=== PATIENT | male | born 1975 | race Caucasian/White ===

== ENCOUNTER 2021-02-02 14:18 | Emergency (ER) | payer OTHER, SELFPAY ==
--- NOTE | 2021-02-02 14:28 | ED.WOUNDLAC ---
HPI - Wound/Laceration General Chief Complaint: Wound/Laceration Stated Complaint: Wound on Left Arm History of Present Illness HPI narrative: This is a 45-year-old male that was at work and scraped with the rebar on his left forearm. This incident happened approximately few hours ago. Patient is not sure when his last tetanus shot was denies any severe pain slight erythema minimal swelling able to use all extremities Related Data Allergies Allergy/AdvReac Type Severity Reaction Status Date / Time No Known Allergies Allergy Unverified 01/27/21 10:03 Review of Systems Review of Systems: Narrative: CONSTITUTIONAL: Denies fever, chills, or sweats. EYES: Denies visual changes, redness, or discharge. ENT: Denies rhinorrhea, congestion, sore throat, or otalgia. CARDIOVASCULAR:Denies chest pain, palpitations, or edema. RESPIRATORY: Denies cough or dyspnea. GASTROINTESTINAL: Denies abdominal pain, nausea, vomiting, or diarrhea. GENITOURINARY: Denies dysuria or hematuria. SKIN:[Denies rash or itching. left forearm abrasion MUSCULOSKELETAL:Denies back pain, joint pain, or myalgia. NEUROLOGIC: Denies headache, numbness, or weakness. PSYCHIATRIC:Denies anxiety or depression PMFSH Past Medical History Medical History Hypertension Obesity (BMI 30-39.9) Family History Family History Father Diabetes mellitus Mother Hypertension Social History Social History Smoking status: Former smoker Alcohol intake: never Comments At time as signature, I have reviewed and agree with nursing past medical, social, surgical and family history. Please see nursing chart for further information. There is no relevant family history pertinent to the presenting complaint. Exam Narrative: Exam Narrative: GENERAL:Well-appearing, well-nourished, and in no acute distress. HEAD:Normocephalic, atraumatic. EYES: PERRLA and EOMI. ENT: Nares clear, no rhinorrhea or epistaxis. Mucous membranes moist. NECK: Supple. CHEST: Clear to auscultation. No respiratory distress. HEART: Regular rate and rhythm. No murmur heard. Normal peripheral pulses. ABDOMEN: Soft, nontender, nondistended, normal active bowel sounds. EXTREMITIES: Normal range of motion. No edema. Left forearm abrasion superficial scraping SKIN: Warm, dry, no rash. NEURO: No focal deficits. Alert and oriented x3. Discharge Plan Discharge Clinical Impression: Abrasion, Tetanus Patient Disposition: Home, Self-Care Condition: Stable Instructions: Antibiotic Form, Diphtheria/Tetanus Vaccine (By injection), Abrasion (ED) Additional Instructions: Use skin creams/lotion, such as those containing calamine or pramoxine to reduce itchiness Avoid scratching when possible to prevent worsening of the condition and disruption of the skin that could lead to bacterial infection To relieve itching, place a cool washcloth or some ice over the area that itches, rather than scratching Return to the office or seek ER visit if condition is not improving or worsens with fever, swelling, difficulty breathing or swallowing. yareli Prescriptions: No Action lisinopril 20 mg tablet 20 mg PO DAILY Qty: 90 RF: 0 Follow-up/Referrals: Rajendra Asher DO [Primary Care Provider] - Stand Alone Forms: Work/School Release IP Time of Disposition: 14:48
[2021-02-02 14:35] VITALS: BP 139/78; PULSE 88; RESP 16; TEMP 36.6; O2SAT 99
[2021-02-02] MEDS: TETANUS,DIPHTHERIA,AC PERTUSSIS ADULT (0.5 ML) BOOSTRIX IM (14:39)
== END 2021-02-02 14:51 | disposition home or self-care (01) ==
PROVIDERS: Emergency Provider Nurse Practitioner Family; PCP Internal Medicine
DX: S50.812A Abrasion of left forearm, initial encounter (principal); W22.8XXA Striking against or struck by other objects, initial encounter; Z23 Encounter for immunization; I10 Essential (primary) hypertension; Z87.891 Personal history of nicotine dependence
CPT/HCPCS: 90471; 90715; 99212; G0463

== ENCOUNTER → 2021-02-20 00:02 | Outpatient (CLI) | payer OTHER, SELFPAY ==
[2021-02-20 16:57] LABS: SARS-CoV-2 RNA PCR Negative
== END ==
PROVIDERS: PCP Internal Medicine; Visit Provider Internal Medicine Gastroenterology
DX: Z01.812 Encounter for preprocedural laboratory examination (principal); Z20.822 Contact with and (suspected) exposure to COVID-19
CPT/HCPCS: C9803; U0003; U0005

== ENCOUNTER 2021-02-24 02:02 | Day surgery (SDC) | payer OTHER, SELFPAY ==
[2021-02-10 10:15] VITALS: BMI 30.4
[2021-02-24 08:09] VITALS: BP 112/75; PULSE 65; RESP 15; TEMP 36.3; O2SAT 99; BMI 30.3
[2021-02-24] MEDS: LACTATED RINGERS 1,000 ML 150 ML IV CONT (08:12)
--- NOTE | 2021-02-24 08:34 | PM.HPGS ---
History of Present Illness History of Present Illness Consent: Risks, benefits, and alternatives have been discussed and questions answered. Patient agrees to proceed with procedure. Chief complaint: dysphagia Narrative: Terrell Lopez is a 46 year old male With dysphagia for solid food. He recently had a meat impaction that brought him into the emergency room. He does not have heartburn. He did when he was younger but he attributed that to [place] life with drinking, etc. Review of Systems Review of Systems: All systems reviewed & are unremarkable except as noted in HPI and below PMFSH Past Medical History Medical History Hypertension Obesity (BMI 30-39.9) Family History Family History Father Diabetes mellitus Mother Hypertension Social History Social History Smoking status: Former smoker Tobacco type: cigarettes Alcohol intake: never Alcohol use details: socially when younger, in 20's Substance use: never Substance use type: does not use Living arrangements: with family Additional living arrangements comments: lives with his two children Gender identity (if verbalized by the patient): Male Spiritual care concerns: No Meds Home Medications and Allergies Home Medications Medication Instructions Recorded Confirmed Type lisinopril 20 mg tablet 20 mg PO DAILY #90 tablet 01/06/21 02/24/21 Rx Allergies Allergy/AdvReac Type Severity Reaction Status Date / Time No Known Allergies Allergy Verified 02/24/21 08:09 Vital Signs Vital Signs - 24 hr 02/24/21 08:09 Temperature 36.3 C L Pulse Rate 65 Respiratory Rate 15 Blood Pressure 112/75 Pulse Oximetry 99 Exam Const: General: alert Orientation/consciousness: patient oriented x3 Resp: Auscultation: clear to auscultation bilaterally Cardio: Rhythm: regular rhythm GI: GI Palp: Yes Soft to palpation and No Tenderness to palpation present (GI) Neuro: General: patient oriented x3 Assessment and Plan Assessment and plan (1) Dysphagia: Qualifiers: Dysphagia type: unspecified Qualified Code(s): R13.10 - Dysphagia, unspecified Code(s): R13.10 - Dysphagia, unspecified Status: Acute Assessment and Plan: EGD with possible biopsy or dilatation or cautery.
--- NOTE | 2021-02-24 08:42 | WPDANESEPPF ---
Anes - Initial Pre Proc Eval Procedure: Operation Date: 02/24/21 09:00 Proposed Procedures p Esophagogastroduodenoscopy - Mitch Franklin MD Date/Time: 02/24/21 08:42 Surgeon: Mitch Franklin MD Pre Op Diagnosis: dysphagia Patient Data Age: 46 Gender: M Height: 1.73 m Weight: 90.4 kg Last Vital Signs Temp 97.4 F L 02/24/21 08:09 Pulse 65 02/24/21 08:09 Resp 15 02/24/21 08:09 BP 112/75 02/24/21 08:09 Pulse Ox 99 02/24/21 08:09 Allergies Allergy/AdvReac Type Severity Reaction Status Date / Time No Known Allergies Allergy Verified 02/24/21 08:09 Home Medications Medication Instructions Recorded Confirmed Type lisinopril 20 mg tablet 20 mg PO DAILY #90 tablet 01/06/21 02/24/21 Rx Patient hx anesthesia problems: none Family hx anesthesia problems: none PMFSH Past Medical History Medical History Hypertension Obesity (BMI 30-39.9) Family History Family History Father Diabetes mellitus Mother Hypertension Social History Social History Smoking status: Former smoker Tobacco type: cigarettes Alcohol intake: never Alcohol use details: socially when younger, in 20's Substance use: never Substance use type: does not use Living arrangements: with family Additional living arrangements comments: lives with his two children Gender identity (if verbalized by the patient): Male Spiritual care concerns: No Anes - Eval Final PreProcedure Day of Procedure 02/24/21 08:42 Patient weight: obese Heart: regular rate and rhythm Lungs: clear to auscultation Airway: Mallampati scale class II Neurological: alert and oriented Last oral intake: >/= 8 hours ASA classification: III Emergent: no Anesthetic plan: proceed Anesthesia type and monitoring: general GIVS and standard monitoring Informed Consent: The patient's anesthetic plan and its attendant risks and benefits were discussed with the patient/family/POA. Questions were solicited and answers provided to the satisfaction of the patient/family/POA.
[2021-02-24] MEDS: BENZOCAINE (*SP) 60 ML SPRAY CAN (HURRICAINE) 1 SPRAY MUCOUS MEM (09:08)
[2021-02-24 09:21] VITALS: BP 97/72; PULSE 72; RESP 12; O2SAT 95
[2021-02-24 09:31] VITALS: BP 105/75; PULSE 74; RESP 18; O2SAT 96
[2021-02-24 09:41] VITALS: BP 111/79; PULSE 77; RESP 15; O2SAT 96
== END 2021-02-24 09:55 | disposition home or self-care (01) ==
PROVIDERS: PCP Internal Medicine; Visit Provider Internal Medicine Gastroenterology
PROC: 0DJ08ZZ Inspection of Upper Intestinal Tract, Via Natural or Artificial Opening Endoscopic (ICD-10-PCS; CPT 43235; principal; 2021-02-24 09:00)
DX: K22.2 Esophageal obstruction (principal); K31.7 Polyp of stomach and duodenum; K21.00 Gastro-esophageal reflux disease with esophagitis, without bleeding; K22.10 Ulcer of esophagus without bleeding; I10 Essential (primary) hypertension; E66.9 Obesity, unspecified; Z68.30 Body mass index [BMI] 30.0-30.9, adult
CPT/HCPCS: 43239; 43249; 88305; J2704; J7120

== ENCOUNTER 2023-04-19 16:33 | Observation (INO) | payer OTHER, SELFPAY ==
[2023-04-19] VITALS (9 sets, daily range): BP systolic 98–136; BP diastolic 65–86; PULSE 62–86; RESP 12–19; TEMP 35.7–36.4; O2SAT 96–100
--- NOTE | ~2023-04-19 | US_ITS ---
EXAMINATION: US renal BI DATE: 04/20/2023 09:25 INDICATION: Acute kidney injury. TECHNIQUE: Multiple ultrasound grayscale images of the kidneys were obtained. COMPARISON: None. FINDINGS: The right kidney measures 9.8 x 5.5 x 4.0 cm. The left kidney measures 9.6 x 5.2 x 4.5 cm. The kidney s demonstrate normal parenchymal echogenicity. There is no hydronephrosis. The bladder is normal. IMPRESSION: 1. Normal kidneys. No hydronephrosis. Reviewed, dictated and finalized at location A.
--- NOTE | ~2023-04-19 | XR_ITS ---
EXAMINATION: XR chest 2V DATE: 04/19/2023 17:08 INDICATION: Dizziness TECHNIQUE: PA and lateral views of the chest were obtained. COMPARISON: Chest radiograph dated 11/02/2017 FINDINGS: The lungs remain clear with no focal airspace opacities, pulmonary edema, pleural effusion or pneumot horax. The cardiomediastinal silhouette is normal. There are bridging osteophytes at multiple levels in the spine, consistent with diffuse idiopathic skeletal hyperostosis (DISH). IMPRESSION: 1. No acute cardiopulmonary disease. Reviewed, dictated and finalized at location A.
--- NOTE | 2023-04-19 16:37 | ECG_ITS ---
Measurements Intervals [place] Rate: 81 P: 39 WV: 140 QRS: -35 QRSD: 88 T: 15 QT: 337 QTc: 392 Interpretive Statements SINUS RHYTHM LEFT AXIS DEVIATION [QRS AXIS < -30] NO PREVIOUS ECG AVAILABLE FOR COMPARISON Electronically Signed On 04-19-2023 17:21:30 CDT by Selin Benson M.D.
[2023-04-19 16:55] LABS: Basophils Absolute Auto 0.1 K/mm3 (0.0-0.1); Basophils Percent Auto 0.4 % (0.2-1.2); Eosinophils Absolute Auto 0.3 K/mm3 (0-0.3); Eosinophils Percent Auto 2.8 % (0-4.4); Hematocrit 44.7 % (42.0-52.0); Hemoglobin 15.4 g/dL (14.0-18.0); Immature Granulocyte Absolute 0.04 K/mm3 (0.00-0.031); Immature Granulocyte Percent A 0.4 % (0-0.5); Mean Corpuscular HGB Conc 34.5 g/dl (32-36); Mean Corpuscular Hemoglobin 31.1 pg (26-34); Mean Corpuscular Volume 90.3 fl (80-100); Mean Platelet Volume 9.9 fl (7.4-10.4); Monocytes Absolute Auto 0.8 K/mm3 (0.1-0.6); Monocytes Percent Auto 6.7 % (2.6-8.5); Neutrophils Absolute Auto 7.8 K/mm3 (1.3-6.7); Neutrophils Percent Auto 68.7 % (45.5-73.1); Platelet Count Result 260 k/mm3 (150-375); Red Blood Count 4.95 M/mm3 (4.6-6.20); Red Cell Distribution Width 12.1 % (11.5-14.5); White Blood Count 11.4 K/mm3 (4.5-10.0)
--- NOTE | 2023-04-19 17:03 | PC.NURSE ---
Pt taken to XRAY via wheelchair at this time
[2023-04-19 17:06] LABS: Alanine Aminotransferase 23 U/L (6-50); Albumin Level 5.3 g/dL (3.5-5.1); Alkaline Phosphatase 58 U/L (38-126); Anion Gap 18 mmol/L (8-16); Aspartate Amino Transferase 25 U/L (17-59); Bilirubin,Total 0.7 mg/dL (0.2-1.3); Blood Urea Nitrogen 41 mg/dL (9-20); Calcium 10.3 mg/dL (8.4-10.2); Carbon Dioxide 22 mmol/L (22-30); Chloride 96 mmol/L (98-107); Estimated CRCL calculation 23 ml/min; Estimated Glomerular Filt Rate 19; Glucose 113 mg/dL (65-110); Potassium 4.9 mmol/L (3.4-5.0); Sodium 136 mmol/L (137-145)
[2023-04-19] MEDS: SODIUM CHLORIDE 0.9% IV 1,000 ML 999 ML IV CONT ×2 (17:13→17:55)
[2023-04-19 17:19] LABS: Creatine Kinase 128 U/L (55-170)
--- NOTE | 2023-04-19 17:47 | ED.RECABL ---
HPI - Recheck/Abnormal Lab/Rx General Chief Complaint: Recheck/Abnormal Lab/Rx <Tena Martinez PA-C - Last Filed: 04/19/23 19:55> Stated Complaint: low bp <Tena Martinez PA-C - Last Filed: 04/19/23 19:55> Time Seen by Provider: 04/19/23 17:07 <Tena Martinez PA-C - Last Filed: 04/19/23 19:55> Source: patient <Tena Martinez PA-C - Last Filed: 04/19/23 19:55> Mode of arrival: ambulatory <RADHAMES Mistry Last Filed: 04/19/23 19:55> Limitations: no limitations <Tena Martinez PA-C - Last Filed: 04/19/23 19:55> History of Present Illness HPI narrative: This is a 48-year-old male that presents to the emergency department for lightheadedness. 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 At the end of the day he was starting to feel lightheaded. He took his blood pressure when he got home and noted it was in the low 100s, which is unusual for him. This prompted him to be seen today for evaluation. Denies fevers, vomiting, or diarrhea. <Tena Martinez PA-C - Last Filed: 04/19/23 19:55> Related Data Allergies/Adverse Reactions: Allergies Allergy/AdvReac Type Severity Reaction Status Date / Time No Known Allergies Allergy Verified 04/19/23 17:02 <Tena Martinez PA-C - Last Filed: 04/19/23 19:55> Review of Systems Review of Systems: CONSTITUTIONAL: Denies fever GASTROINTESTINAL: Denies nausea, vomiting, or diarrhea. MUSCULOSKELETAL: Denies myalgia. <Tena Martinez PA-C - Last Filed: 04/19/23 19:55> All systems reviewed & are unremarkable except as noted in HPI and below <RADHAMES Mistry Last Filed: 04/19/23 19:55> [facility] Past Medical History Medical History: Medical History Hypertension Obesity (BMI 30-39.9) <Tena Martinez PA-C - Last Filed: 04/19/23 19:55> Family History Family History: Family History Father Diabetes mellitus Mother Hypertension <Tena Martinez PA-C - Last Filed: 04/19/23 19:55> Social History Social History: Social History (Updated 10/21/22 @ 07:28 by Celia Estevez) Social History: Caffeine-tea Smoking status: Former smoker Tobacco type: cigarettes Smoking end date: 08/28/12 Alcohol intake: never Alcohol use details: socially when younger, in 20's Substance use: never Substance use type: does not use Lack of Transportation: No Lack of Food: Never True Current Housing: I Have Housing Concerned About Future Housing: No Difficulty Paying Gas/Electric Bills: No Difficulty Paying for Meds: No Currently Unemployed: No Education: Grade School Difficulty w/ Childcare or Family Care: No Living arrangements: with family Additional living arrangements comments: lives with his two children Gender identity (if verbalized by the patient): Male Spiritual care concerns: No <Tena Martinez PA-C - Last Filed: 04/19/23 19:55> Exam Narrative: GENERAL: Well-appearing, well-nourished, and in no acute distress. HEAD: Normocephalic, atraumatic. EYES: EOMI. ENT: Mucous membranes moist. Oropharynx without tonsillar hypertrophy exudate or other lesions. CHEST: Clear to auscultation. No respiratory distress. No wheezes rales or rhonchi HEART: Regular rate and rhythm. No murmur heard. Normal peripheral pulses. EXTREMITIES: Normal range of motion. No edema. SKIN: Warm, dry, no rash. NEURO: No focal deficits. Alert and oriented x3. PSYCH: Normal mood and affect <RADHAMES Mistry Last Filed: 04/19/23 19:55> Course Course Emergency Course: Patient was updated on workup and need for admission <Tena Martinez PA-C - Last Filed: 04/19/23 19:55> PIER HAND/PA Physician Supervision For this patient encounter, I reviewed the PIER HAND or PA documentation, treatment plan, and I was responsible for the medical decision making; and I had [id number] time with this
[2023-04-19 18:18] LABS: Appearance Urine Cloudy (Clear); Bacteria Urine None Seen /hpf; Bilirubin Urine Negative (Negative); Blood Urine Negative (Negative); Color Urine Yellow (Yellow); Glucose Urine UA Negative (Negative); Hyaline Casts Urine Present /lpf; Ketones Urine Trace mg/dL (Negative); Leukocyte Esterase Ur Negative LEU/UL (Negative); Nitrate Urine Negative (Negative); Non Pathogenic Casts >20; Protein Urine 1+ mg/dL (Negative); RBC Urine 0-2 /hpf (0-2); Specific Grav Ur 1.018 (1.001-1.035); Squamous Epithelial Cell Urine Few /hpf (Few)
[2023-04-19 18:26] LABS: Add Urine Microscopic? YES
--- NOTE | 2023-04-19 20:13 | PM.IMHP ---
H&P: HPI History of Present Illness Date/Time: 04/19/23 20:13 Chief Complaint: Lightheadedness Narrative: This is a 48-year-old male with past medical history significant for hypertension, obesity. 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 Patient has been in his usual state of health up until this point has been trying to drink enough water to keep up with the weather demands. Patient has been his usual state of health denies any nausea, vomiting, diarrhea, abdominal pain, shortness of breath, chest pain, palpitations, leg swelling, ankle swelling, fevers rigors or chills, no cough, no sputum production. Preliminary workup was significant for chemistry panel with BUN 40 creatinine 3.5 a urinalysis showed WBC in the range of 6-10 per high-power field. In emergency room patient received 2 L of IV fluids 0.9 normal saline and is currently on maintenance. Patient is being placed in observation for further evaluation management and treatment. EXAMINATION: XR chest 2V DATE: 04/19/2023 17:08 INDICATION: Dizziness TECHNIQUE: PA and lateral views of the chest were obtained. COMPARISON: Chest radiograph dated 11/02/2017 FINDINGS: The lungs remain clear with no focal airspace opacities, pulmonary edema, pleural effusion or pneumothorax. The cardiomediastinal silhouette is normal. There are bridging osteophytes at multiple levels in the spine, consistent with diffuse idiopathic skeletal hyperostosis (DISH). IMPRESSION: 1. No acute cardiopulmonary disease. EKG Rate 81 WA 140 QRSd 88 QT 337 QTc 392 --[place]-- P 39 QRS -35 T 15 SINUS RHYTHM LEFT AXIS DEVIATION [QRS AXIS < -30] NO PREVIOUS ECG AVAILABLE FOR COMPARISON Electronically Signed On 04-19-2023 Review of Systems Review of Systems: Lightheadedness, low blood pressure. Constitutional: Constitutional: Denies chills, Reports fatigue, Denies fever(s), Denies lethargy, Denies malaise, Denies night sweats, Denies poor appetite and Denies weight loss Eyes: Eyes: Denies change in vision ENT: Denies dysphagia, Reports dizziness, Denies nasal congestion, Denies nasal discharge and Denies odynophagia Cardiovascular: Cardiovascular: Denies chest pain at rest, Reports lightheadedness, Denies radiating jaw, neck or arm pain, Denies palpitations and Denies dyspnea Respiratory: Respiratory: Denies chest congestion, Denies cough and Denies excessive phlegm production Gastrointestinal: Gastrointestinal: Denies abdominal pain, Denies dyspepsia, Denies heartburn, Denies diarrhea, Denies nausea and Denies vomiting Genitourinary: Genitourinary: Denies dysuria Musculoskeletal: Musculoskeletal: Denies back pain, Denies myalgias, Denies muscle cramps and Denies muscle weakness Integumentary/Breasts: Skin/Breast: Denies rash Neurologic: Denies focal weakness and Denies Sensory deficit (Neuro) Psychiatric: Psychiatric: Reports no additional psychiatric complaints and Reports as per HPI Endocrine: Endocrine: Denies cold intolerance, Denies fatigue, Denies heat intolerance, Denies polyphagia, Denies polyuria and Denies palpitations Hematologic/Lymphatic: Hematologic/Lymphatic: Reports no additional hematologic/lymphatic complaints and Reports as per HPI Allergic/Immunologic: Allergic/Immunologic: Reports no additional allergic/immunologic complaints and Reports as per HPI PMFSH Past Medical History Medical History Hypertension Obesity (BMI 30-39.9) Family History Family History Father Diabetes mellitus Mother Hypertension Social History Social History (Updated 10/21/22 @ 07:28 by Celia Estevez) Social History: Caffeine-tea Smoking status: Former smoker Tobacco type: cigarettes Smoking end date: 08/28/12 Alcohol intake: never
--- NOTE | 2023-04-19 21:16 | ADMGEN ---
This patient, Terrell Lopez, was admitted to [facility] Surg Room 314-01. Patient/family oriented to hospital policies and general routines including ID bracelet, bed and alarms, visiting hours, pain management, procedures, bathroom and other care routines, personal items, smoking policy, room service/diet, and visiting hours. Information on how to activate the Rapid Response Team has been discussed. Patient/Family are encouraged to report perceived risks to care and to ask questions if they do not understand what they are told or what they should do.
[2023-04-19] MEDS: SODIUM CHLORIDE 0.9% IV 1,000 ML 125 ML IV CONT (21:42)
--- NOTE | 2023-04-20 | ECHO_ITS ---
Patient Info Name: Terrell Lopez Age: 48 years : 1975 Gender: Male Ht: 68 in Wt: 190 lbs BSA: 2.05 m2 HR: 56 bpm BP: 119 / 70 mmHg Technical Quality: Good Exam Date: 04/20/2023 11:47 AM Exam Location: [facility] Patient Status: Outpatient Admit Date: 04/19/2023 Staff Ordering Physician: Doron Pryor MD [employer]: Mahnaz Grace RDCS Attending Provider: Doron Pryor MD Referring Physician: Konstantin STEWART; Exam Type: CA echo doppler color flow Study Info Indications - YANIRA Complete two-dimensional, color flow and Doppler transthoracic echocardiogram is performed. Summary 1. Complete two-dimensional, color flow and Doppler transthoracic echocardiogram is performed. 2. Left ventricular chamber dimension is normal. 3. Left ventricular systolic function is normal, estimated at 60-65%. 4. There is mild concentric increased left ventricular wall thickness. 5. The left ventricular diastolic function is grade I diastolic dysfunction. 6. E/e' 9 is minimally elevated. 7. Global longitudinal strain is normal at -17.0%. 8. Left atrial chamber dimension is mildly enlarged. 9. There is mild tricuspid valve regurgitation. 10. No pulmonary hypertension, estimated pulmonary arterial systolic pressure is 33 mmHg. Left Ventricle E/e' 9 is minimally elevated. Global longitudinal strain is normal at -17.0%. Left ventricular chamber dimension is normal. Left ventricular systolic function is normal, estimated at 60-65%. There is mild concentric increased left ventricular wall thickness. The left ventricular diastolic function is grade I diastolic dysfunction. Right Ventricle Right ventricular systolic function is normal and with normal TAPSE 2.4 cm. Right ventricular chamber dimension is normal. Left Atria Left atrial chamber dimension is mildly enlarged. Right Atria Right atrial chamber dimension is normal. Aortic Valve The aortic valve is trileaflet. There is no aortic valve stenosis. There is no aortic valve regurgitation. Pulmonic Valve There is no pulmonic regurgitation. Mitral Valve There is no mitral valve stenosis. There is no mitral valve regurgitation. Tricuspid Valve There is mild tricuspid valve regurgitation. No pulmonary hypertension, estimated pulmonary arterial systolic pressure is 33 mmHg. Pericardium/Pleural There is no pericardial effusion. Inferior Vena Cava Normal inferior vena cava with >50% collapse upon inspiration consistent with normal right atrial pressure, 5 mmHg. Aorta The aortic root size at the sinus of Valsalva is normal. Left Ventricular Outflow Tract Name Value Normal LVOT 2D LVOT Diameter 2.0 cm LVOT Doppler LVOT Peak Gradient 5 mmHg LVOT Mean Gradient 3 mmHg LVOT VTI 20 cm LVOT VTI/AV VTI Ratio 0.8 LVOT Stroke Volume 61 ml LVOT CO 3.8 l/min LVOT CI 1.8 l/min/m2 Pulmonic Valve Name Value Normal
[2023-04-20 06:00] VITALS: BP 119/70; PULSE 68; RESP 16; TEMP 35.8; O2SAT 98
[2023-04-20] MEDS: SODIUM CHLORIDE 0.9% IV 1,000 ML 125 ML IV CONT ×2 (06:21→15:00)
[2023-04-20 06:29] LABS: Basophils Absolute Auto 0.1 K/mm3 (0.0-0.1); Basophils Percent Auto 0.7 % (0.2-1.2); Eosinophils Absolute Auto 0.4 K/mm3 (0-0.3); Hematocrit 39.5 % (42.0-52.0); Immature Granulocyte Absolute 0.03 K/mm3 (0.00-0.031); Immature Granulocyte Percent A 0.4 % (0-0.5); Lymphocytes Absolute Auto 2.38 K/mm3 (0.9-3.2); Lymphocytes Percent Auto 31.9 % (18.3-44.2); Mean Corpuscular HGB Conc 32.9 g/dl (32-36); Mean Corpuscular Hemoglobin 30.4 pg (26-34); Mean Corpuscular Volume 92.3 fl (80-100); Mean Platelet Volume 10.3 fl (7.4-10.4); Monocytes Absolute Auto 0.5 K/mm3 (0.1-0.6); Neutrophils Absolute Auto 4.1 K/mm3 (1.3-6.7); Platelet Count Result 207 k/mm3 (150-375); Red Blood Count 4.28 M/mm3 (4.6-6.20); Red Cell Distribution Width 11.9 % (11.5-14.5); White Blood Count 7.5 K/mm3 (4.5-10.0)
[2023-04-20 06:36] LABS: Anion Gap 4 mmol/L (8-16); Blood Urea Nitrogen 36 mg/dL (9-20); Calcium 8.3 mg/dL (8.4-10.2); Carbon Dioxide 25 mmol/L (22-30); Chloride 105 mmol/L (98-107); Estimated CRCL calculation 36 ml/min; Estimated Glomerular Filt Rate 32; Glucose 102 mg/dL (65-110); Potassium 4.9 mmol/L (3.4-5.0); Sodium 134 mmol/L (137-145)
[2023-04-20 10:45] VITALS: BP 114/72; PULSE 60; RESP 16; TEMP 35.9; O2SAT 99
[2023-04-20 10:46] VITALS: BP 131/79; BP 132/84; PULSE 60; PULSE 63; RESP 16; TEMP 35.9; O2SAT 100
--- NOTE | 2023-04-20 11:15 | PM.DS ---
DS: Admitting Diagnosis Discharge Date 04/20/23 1115 Admitting Diagnosis YANIRA, dehydration, hypotension DS: Discharge Diagnosis Discharge Diagnosis (1) Dizziness: Code(s): R42 - Dizziness and giddiness Status: Acute Assessment and Plan: PLACE IN OBSERVATION LIKELY SECONDARY TO DEHYDRATION GENTLE REHYDRATION SUPPORTIVE CARE ECHOCARDIOGRAM IN A.M. (2) Acute kidney injury: Code(s): N17.9 - Acute kidney failure, unspecified Status: Acute Assessment and Plan: LIKELY TO BE PRE RENAL AZOTEMIA RENAL ULTRASOUND normal kidneys or hydronephrosis REPEAT BMP IN THE MORNING Creatnine upon arrival was 3.50 Currently 2.20 Recheck labs at 2 pm (3) Essential hypertension: Code(s): I10 - Essential (primary) hypertension Status: Acute Assessment and Plan: CURRENTLY HOLDING LISINOPRIL CONTINUE TO MONITOR BP was 132/84 Continue to trend labs DS: Summary Hospital Course Hospital Course: Patient is a 48 year old male with a past medical history of hypertension and obesity who presented the ED with complaints of lightheadedness, dizziness and hypotension. 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 He stated that he usually drinks about 4-20 oz bottles of water along with 1 Gatorade. Blood pressure upon arrival was 101/60. Patient stated that normally this happens to him when he is working outdoors when his really the hot however 1 is not really had he does not have this issue. He also stated that when it is hot he also gets very dizzy and lightheaded. Upon arrival to the ED was noted that his creatinine was 3.5 and his blood pressure was 101/60. Patient was given 2 L of IV fluids and maintenance fluids were continued. Currently creatinine is down to 1.60. echocardiogram was performed showed an EF of 60 65% with grade 1 diastolic dysfunction. No other abnormalities noted. Currently patient is feeling well with no dizziness noted. Spoke to him his extensively about hydration and increasing water or fluid intake while working outside. Patient did verbalize understanding. Currently denies any chest pain, shortness a breath, nausea, vomiting, diarrhea constipation. Patient is stable for discharge for labs and vital signs. Time Spent with Patient Time attestation: Total time spent providing and/or coordinating discharge services: Exam Narrative: General: well-nourished, well-appearing 48-year-old male, laying in bed, comfortable, NARD Neuro: awake, alert and oriented x4, speech clear, no focal neuro deficits noted HEENMT: normocephalic, atraumatic, EOMI, sclerae anicteric, moist oral mucosa Respiratory: Clear to auscultation bilaterally without crackles, rhonchi or wheezes, nonlabored breathing Cardio: regular rate, regular rhythm with S1-S2 Abdomen: nondistended, normoactive bowel sounds, soft, nontender to palpation Extremities: no edema, erythema, or tenderness to palpation, DP pulses 2+ bilaterally Skin: no rashes or lesions, warm and dry Psych: appropriate mood and affect, judgment and insight intact DS: Data Data Completed and Pending Labs on day of discharge: Labs from last 24 hours 04/20/23 04/19/23 04/19/23 05:41 17:53 16:44 WBC 7.5 11.4 H RBC 4.28 L 4.95 Hgb 13.0 L 15.4 Hct 39.5 L 44.7 MCV 92.3 90.3 MCH 30.4 31.1 MCHC 32.9 34.5 RDW 11.9 12.1 Plt Count 207 260 MPV 10.3 9.9 Immature Gran % (Auto) 0.4 0.4 Neut % (Auto) 55.0 68.7 Lymph % (Auto) 31.9 21.0 Dixon % (Auto) 7.0 6.7 Eos % (Auto) 5.0 H 2.8 Baso % (Auto) 0.7 0.4 Lymph # (Auto) 2.38 2.40 [place] # (Auto) 0.5 0.8 H Eos # (Auto) 0.4 H 0.3 Baso # (Auto) 0.1 0.1 Abs Immat Gran (auto) 0.03 0.04 H Absolute Neuts (auto) 4.1 7.8 H Absolute Nucleated RBC 0.0 0.0 Nucleated RBC % 0.0 0.0 Sodium 134 L 136 L Potassium 4.9 4.9 Chloride 105 96 L Carbon Dioxide 25
[2023-04-20 14:00] VITALS: BP 138/82; PULSE 64; RESP 16; TEMP 36.2; O2SAT 100
[2023-04-20 14:26] LABS: Alanine Aminotransferase 16 U/L (6-50); Alkaline Phosphatase 48 U/L (38-126); Anion Gap 3 mmol/L (8-16); Aspartate Amino Transferase 19 U/L (17-59); Bilirubin,Total 0.5 mg/dL (0.2-1.3); Blood Urea Nitrogen 32 mg/dL (9-20); Calcium 8.3 mg/dL (8.4-10.2); Carbon Dioxide 29 mmol/L (22-30); Chloride 104 mmol/L (98-107); Estimated CRCL calculation 49 ml/min; Estimated Glomerular Filt Rate 46; Glucose 98 mg/dL (65-110); Potassium 4.5 mmol/L (3.4-5.0); Sodium 136 mmol/L (137-145)
== END 2023-04-20 15:30 | disposition home or self-care (01) ==
LOC: ANHED 20:16 → ANH3MEDSUR 21:18 → ANHIMU 04-21 11:35
PROVIDERS: Emergency Medicine; Nurse Practitioner; Admitting Provider Internal Medicine; Emergency Provider Physician Assistant; PCP Internal Medicine; Visit Provider Student in an Organized Health Care Education/Training Program
DX: R42 Dizziness and giddiness (principal); N17.9 Acute kidney failure, unspecified; I11.9 Hypertensive heart disease without heart failure; N39.0 Urinary tract infection, site not specified; I95.9 Hypotension, unspecified; E66.9 Obesity, unspecified; D72.829 Elevated white blood cell count, unspecified; R79.89 Other specified abnormal findings of blood chemistry; R94.31 Abnormal electrocardiogram [ECG] [EKG]; R79.1 Abnormal coagulation profile; I07.1 Rheumatic tricuspid insufficiency; Z68.28 Body mass index [BMI] 28.0-28.9, adult; Z87.891 Personal history of nicotine dependence; Z82.49 Family history of ischemic heart disease and other diseases of the circulatory system; Z79.899 Other long term (current) drug therapy
CPT/HCPCS: 36415; 71046; 76775; 80048; 80053; 81001; 82550; 85025; 87086; 93005; 93306; 96360; 96361; 96374; 99285; G0378; G0379; J0696; J7030

== ENCOUNTER 2023-05-09 16:39 | Emergency (ER) | payer OTHER, SELFPAY ==
--- NOTE | ~2023-05-09 | XR_ITS ---
EXAM: XR foot RT min 3V DATE: 05/09/2023 19:05 HISTORY: R foot injury/swelling/pain . COMPARISON: None available. FINDINGS: Normal mineralization. No fracture or dislocation. No lytic or blastic lesion. Joint space s are maintained. Plantar and Achilles enthesopathy. No erosion or periosteal change. Soft tissues wi thin normal limits. IMPRESSION: No acute osseous finding in the right foot. Reviewed, dictated and finalized at location K.
[2023-05-09 16:42] VITALS: BP 125/68; PULSE 80; RESP 16; TEMP 36.7; O2SAT 95
--- NOTE | 2023-05-09 19:45 | ED.LOWEXIN ---
HPI - Extremity Injury (Lower) General Chief Complaint: Extremity Injury, Lower Stated Complaint: ankle injury Time Seen by Provider: 05/09/23 18:55 Source: patient Mode of arrival: ambulatory Limitations: no limitations History of Present Illness HPI Narrative: Patient is a 48-year-old male who presents to the ED with report of right foot pain. 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 He states he was working on a job on and was in this position for a prolonged period. He has had pain in the ball of his right foot and distal arch since then, worse with walking and bending his toes up or down. He states his foot has appeared somewhat swollen. He has been taking Advil with minimal relief. Denies any numbness or tingling. Related Data Allergies Allergy/AdvReac Type Severity Reaction Status Date / Time No Known Allergies Allergy Verified 05/09/23 18:46 Review of Systems Review of Systems: CONSTITUTIONAL: Denies fever, chills, or sweats. MUSCULOSKELETAL: See HPI. NEUROLOGIC: See HPI. All systems reviewed & are unremarkable except as noted in HPI and below PMFSH Past Medical History Medical History Hypertension Obesity (BMI 30-39.9) Family History Family History Father Diabetes mellitus Mother Hypertension Social History Social History Social History: Caffeine-tea Smoking status: Former smoker Tobacco type: cigarettes Smoking end date: 08/28/12 Alcohol intake: never Alcohol use details: socially when younger, in 20's Substance use: never Substance use type: does not use Lack of Transportation: No Lack of Food: Never True Current Housing: I Have Housing Concerned About Future Housing: No Difficulty Paying Gas/Electric Bills: No Difficulty Paying for Meds: No Currently Unemployed: No Education: Grade School Difficulty w/ Childcare or Family Care: No Living arrangements: with family Additional living arrangements comments: lives with his two children Gender identity (if verbalized by the patient): Male Spiritual care concerns: No Exam Narrative: GENERAL: Well appearing, well-nourished, non-toxic, in no acute distress. HEAD: Normocephalic, atraumatic. NECK: Supple. No adenopathy, no masses. RESPIRATORY: Airway patent, respirations nonlabored. CARDIOVASCULAR: Regular rate and rhythm without murmurs, rubs, or gallops. Pedal pulses 2+ and equal bilaterally. MUSCULOSKELETAL: Moves all extremities. Full range of motion of right ankle. Discomfort reported with flexion and extension of toes, worst with first toe. Tenderness to palpation on plantar surface of ball of right foot, particularly between area of first and second metatarsals extending into distal arch. No significant tenderness along proximal arch or heel. No tenderness along the Achilles tendon. No palpable Bob's neuroma. Sensation intact. Good capillary refill of toes. SKIN: Warm, dry, normal color. No rashes. NEURO: A&O X3. Speech clear. Cranial nerves II-XII grossly intact. Steady gait. No ataxic movements. PSYCHIATRIC: Appropriate mood and affect. Normal interaction. Course Vital Signs Vital signs: Vital Signs Temperature 98.1 F 05/09/23 16:42 Pulse Rate 80 05/09/23 16:42 Respiratory Rate 16 05/09/23 16:42 Blood Pressure 125/68 05/09/23 16:42 Pulse Oximetry 95 05/09/23 16:42 Temperature 98.1 F 05/09/23 16:42 Pulse Rate 82 05/09/23 19:52 Respiratory Rate 16 05/09/23 19:52 Blood Pressure 120/70 05/09/23 19:52 Pulse Oximetry 96 05/09/23 19:52 MDM - Extremity Injury (Lower) MDM Narrative Medical decision making narrative: Patient presented to ED with several day history of right allan
[2023-05-09] MEDS: KETOROLAC 30 MG/ML VIAL (*BKC) IM (19:46)
[2023-05-09 19:52] VITALS: BP 120/70; PULSE 82; RESP 16; O2SAT 96
== END 2023-05-09 19:59 | disposition home or self-care (01) ==
PROVIDERS: Emergency Provider Physician Assistant; PCP Internal Medicine
DX: M79.671 Pain in right foot (principal); I10 Essential (primary) hypertension; E66.9 Obesity, unspecified; Z68.29 Body mass index [BMI] 29.0-29.9, adult; Z87.891 Personal history of nicotine dependence
CPT/HCPCS: 73630; 96372; 99283; J1885

== ENCOUNTER 2023-06-28 19:24 | Emergency (ER) | payer OTHER, SELFPAY ==
[2023-06-28] VITALS (14 sets, daily range): BP systolic 114–138; BP diastolic 71–79; PULSE 69–82; RESP 14–21; TEMP 36.2; O2SAT 94–98
[2023-06-28] MEDS: diphenhydrAMINE HCl INJ 50 MG/ML VIAL 25 MG IV PUSH (20:11)
[2023-06-28] MEDS: methylPREDNISolone SOD SUCC 125 MG VIAL IV PUSH (20:11)
[2023-06-28] MEDS: EPINEPHrine HCL INJ 1 MG/ML AMPUL 0.3 MG IM (20:12)
[2023-06-28] MEDS: FAMOTIDINE 20 MG/2 ML VIAL IV PUSH (20:12)
--- NOTE | 2023-06-28 21:46 | ED.GENADULT ---
HPI - General Adult General Chief complaint: Unspecified Stated complaint: facial swelling Time Seen by Provider: 06/28/23 20:01 History of Present Illness HPI narrative: Patient is a 48-year-old male who presents ER with facial swelling. Began 50 minutes after taking ibuprofen. It is located in bilateral cheeks near the lips. It extends into the lower lip. Has little bit of a tickle in the back of his throat that makes it uncomfortable to swallow. No difficulty breathing. He is tolerating secretions without issue. No fevers or chills or sweats. No previous history to NSAIDs. Of note patient also takes lisinopril and takes that in the morning. Patient has no rash or itching. He has tried no medications to try to decrease his swelling. He did eat some spaghetti but has no known food allergies. Related Data Allergies Allergy/AdvReac Type Severity Reaction Status Date / Time No Known Allergies Allergy Verified 05/09/23 18:46 Review of Systems Review of Systems: All systems reviewed & are unremarkable except as noted in HPI and below Constitutional: Constitutional: Denies chills, Denies fatigue and Denies fever(s) ENT: Reports lip swelling, Denies nasal congestion, Reports throat swelling and Denies tongue swelling Cardiovascular: Cardiovascular: Denies chest pain and Denies rapid heart rate Respiratory: Respiratory: Denies cough, Denies dyspnea and Denies wheezing Allergic/Immunologic: Allergic/Immunologic: Denies GI upset with certain foods, Denies urticaria, Denies itchy eyes, Reports lip swelling, Denies seasonal rhinorrhea, Reports throat swelling, Denies tongue swelling and Denies wheezing [facility] Past Medical History Medical History Hypertension Obesity (BMI 30-39.9) Family History Family History Father Diabetes mellitus Mother Hypertension Social History Social History Social History: Caffeine-tea Smoking status: Former smoker Tobacco type: cigarettes Smoking end date: 08/28/12 Alcohol intake: never Alcohol use details: socially when younger, in 20's Substance use: never Substance use type: does not use Lack of Transportation: No Lack of Food: Never True Current Housing: I Have Housing Concerned About Future Housing: No Difficulty Paying Gas/Electric Bills: No Difficulty Paying for Meds: No Currently Unemployed: No Education: Grade School Difficulty w/ Childcare or Family Care: No Living arrangements: with family Additional living arrangements comments: lives with his two children Gender identity (if verbalized by the patient): Male Spiritual care concerns: No Exam Narrative: GENERAL: Well-appearing, well-nourished, and in no acute distress. HEAD: Normocephalic, atraumatic. EYES: PERRL and EOMI. ENT: Mucous membranes moist. Mild edema of the lower lip laterally and the cheeks. No sublingual edema or edema of the tongue. Uvula midline with questional edema. Plenty of room in the posterior oropharynx and tolerating oral secretions without issue. CHEST: Clear to auscultation. No respiratory distress. HEART: Regular rate and rhythm. Normal peripheral pulses. ABDOMEN: Soft, nontender, nondistended. EXTREMITIES: Normal range of motion. No edema. SKIN: Warm, dry, no rash. NEURO: Alert and oriented x3. PSYCH: Normal mood and affect. Course Course Emergency Course: Patient resting comfortably. Swelling is going down. No difficulty breathing or swallowing. Recommend discontinuing ibuprofen and lisinopril. Recommend follow-up with PCP. Patient verbalized understanding. Vital Signs Vital signs: Vital Signs Temperature 97.2 F L 06/28/23 19:26 Pulse Rate 82 06/28/23 19:26 Respiratory Rate 16 06/28/23 19:26 Blood Pressure 138/79 06/28/23 19:26 Pulse Oxime
== END 2023-06-28 22:52 | disposition home or self-care (01) ==
PROVIDERS: Emergency Provider Emergency Medicine; PCP Internal Medicine
DX: T78.3XXA Angioneurotic edema, initial encounter (principal); T50.905A Adverse effect of unspecified drugs, medicaments and biological substances, initial encounter; I10 Essential (primary) hypertension; E66.9 Obesity, unspecified; Z68.30 Body mass index [BMI] 30.0-30.9, adult; Z87.891 Personal history of nicotine dependence
CPT/HCPCS: 96372; 96374; 96375; 99284; J0171; J1200; J2930

== ENCOUNTER 2025-06-27 22:58 | Emergency (ER) | payer OTHER, SELFPAY ==
--- OUTSIDE RECORDS SUMMARY | 2025-06-27 23:00 | XMS_ITS | Patient Health Record ---
Author Organization [facility] Address [address] [place] [address] Care Team Providers Care Machine Bobbin Winder Name Role Phone Rajendra Asher D.O. Primary Care Provider Un available Ruchi Gayle Unavailable [phone] Allergies No Known Allergies Reason For Referral No Information Medications Medication SIG (Take, Route, Fr equency, Duration) Notes Start Date End Date Status Cam boot short short 05/11/2023 Active Lisinopril 30 MG Oral; Duration: 90 Days Active Social History Tobacco Use: Social History Observation Description Date Details (start date - stop date) Former Smoker 08/28/1992 - 08/28/2005 Tobacco Use/Smoking Question Answer Notes Tobacco use: former smoker When did you start smoking? 08/28/1992 When did you stop smoking? 08/28/2005 How long has it been since you last smoked? > 10 years Plan Of Treatment No Information Insurance Providers Payer Name Payer Address Payer Phone Subscriber Number Group Number Insured Name Patient Relationship to Insured Coverage Start Date Coverage End Date [facility] [address] [place] [id number] Andrew Lopez Self - patient is the insured Medical (General) History Medical History History ICD Code High Blood Pressure, GERD Surgical History Surgery Date(Month/Year) Esophageal dilated ion
[2025-06-28] MEDS: FAMOTIDINE 20 MG TABLET PO (01:06)
[2025-06-28] MEDS: diphenhydrAMINE HCl CAP 25 MG CAPSULE 50 MG PO (01:07)
--- NOTE | 2025-06-28 02:03 | ED.GENADULT ---
HPI - General Adult General Chief complaint: Skin/Abscess/Foreign Body Stated complaint: rash all over body after eating food Time Seen by Provider: 06/28/25 00:20 History of Present Illness HPI narrative: 50-year-old male presenting with acute allergic reaction consisting of a diffuse erythematous rash involving bilateral upper extremities, proximal lower extremities, and abdomen, with minimal involvement of the chest. He states experience transient pruritus at rash onset but currently denies ongoing itching. Patient denies any known allergies and any prior episodes. patient denies fevers/chills, shortness of breath, angioedema, chest pain, lightheadedness, nausea/vomiting /diarrhea, headache, dizziness, or numbness / tingling. He did not take anything prior to arriving. Endorses he is an occasional cigarette smoker. Related Data Allergies Allergy/AdvReac Type Severity Reaction Status Date / Time ibuprofen Allergy Severe Anaphylaxis Verified 09/05/24 13:47 Review of Systems Review of Systems: All systems reviewed & are unremarkable except as noted in HPI and below PMFSH Past Medical History Medical History (Updated 06/28/25 @ 02:32 by PRIYANKA Msea) Dizziness UTI (urinary tract infection) Acute kidney injury Elevated serum creatinine Chronic sinusitis Hypertension Obesity (BMI 30-39.9) Encounter to establish care Dysphagia Family History Family History Father Diabetes mellitus Mother Hypertension Social History Social History Social History: Caffeine-tea Smoking status: Former smoker Tobacco type: cigarettes Smoking end date: 08/28/12 Alcohol intake: never Alcohol use details: socially when younger, in 20's Substance use: never Substance use type: does not use Lack of Transportation: No Lack of Food: Never True Current Housing: I Have Housing Concerned About Future Housing: No Difficulty Paying Gas/Electric Bills: No Difficulty Paying for Meds: No Currently Unemployed: No Education: Grade School Difficulty w/ Childcare or Family Care: No Living arrangements: with family Additional living arrangements comments: lives with his two children Gender identity (if verbalized by the patient): Male Spiritual care concerns: No Exam Narrative: GENERAL: Well-appearing, well-nourished, and in no acute distress. HEAD: Normocephalic, atraumatic. EYES: PERRLA and EOMI. ENT: Nares clear, no rhinorrhea or epistaxis. Mucous membranes moist. Oropharynx without tonsillar hypertrophy exudate or other lesions. Bilateral TMs pearly garcia non-bulging NECK: Supple. No adenopathy or masses. No carotid bruits or JVD CHEST: Clear to auscultation. No respiratory distress. No wheezes rales or rhonchi HEART: Regular rate and rhythm. No murmur heard. Normal peripheral pulses. ABDOMEN: Soft, nontender, nondistended, normal active bowel sounds. EXTREMITIES: Normal range of motion. No edema. SKIN: Diffuse erythematous rash involving bilateral upper extremities, proximal lower extremities, and abdomen, with minimal involvement of the chest NEURO: No focal deficits. Alert and oriented x3. PSYCH: Normal mood and affect Course Vital Signs Vital signs: Vital Signs Pulse Rate 76 06/28/25 03:38 Blood Pressure 138/93 H 06/28/25 03:38 Pulse Oximetry 96 06/28/25 03:38 Pulse Rate 76 06/28/25 03:38 Blood Pressure 138/93 H 06/28/25 03:38 Pulse Oximetry 96 06/28/25 03:38 Medical Decision Making MDM Narrative Medical decision making narrative: 50-year-old male presenting with acute allergic reaction consisting of a diffuse erythematous rash involving bilateral upper extremities, proximal lower extremities, and abdomen, with minimal involvement of the chest. He states experience transient pruritus at rash onset but currently denies ongoing itching. Patient denies any known allergies and any prior episodes. patient denies fevers/chills, shortness of breath, angioedema, chest pain, lightheadedness, nausea/vomiting /diarrhea, headache, dizziness, or numbness / tingling. He did not take anything prior to arriving. Endorses he is an occasional cigarette smoker. Patient given diphenhydramine, Pepcid, and Solu-Medrol. Rash showed significant improvement. Patient clinically stable and comfortable with discharge home. Discussed having Benadryl and Pepcid on hand at home and taking a daily anti-histamine. Advised to follow up closely with PCP. Medical Records Medical records reviewed: Yes I reviewed the external patient's medical records. Vital Signs Vital Signs: Vital Signs Pulse Rate 76 06/28/25 03:38 Blood Pressure 138/93 H 06/28/25 03:38 Pulse Oximetry 96 06/28/25 03:38 Pulse Rate 76 06/28/25 03:38 Blood Pressure 138/93 H 06/28/25 03:38 Pulse Oximetry 96 06/28/25 03:38 Discharge Plan Discharge Clinical Impression: Rash Patient Disposition: Home Condition: Improved Instructions: General Allergic Reaction (ED) Additional Instructions: Have OTC Benadryl and Pepcid on hand in case of recurrence. Benadryl can cause sedation. Do not drive, operate heavy machinery, drink alcohol while on Benadryl as this may cause further sedation. Take a daily anti-histamine until able to follow-up with PCP and get further recommendations. Return if symptoms worsen. Patient Language: Upper Sorbian Prescriptions: No Action lisinopril 30 mg tablet 30 mg PO DAILY Qty: 90 1RF Follow-up/Referrals: Rajendra Asher DO [Primary Care Provider, Internal Medicine]
[2025-06-28 03:38] VITALS: BP 138/93; PULSE 76; O2SAT 96
== END 2025-06-28 03:47 | disposition home or self-care (01) ==
PROVIDERS: PCP Internal Medicine
DX: R21 Rash and other nonspecific skin eruption (principal); I10 Essential (primary) hypertension; J32.9 Chronic sinusitis, unspecified; F17.210 Nicotine dependence, cigarettes, uncomplicated; Z87.440 Personal history of urinary (tract) infections; Z79.899 Other long term (current) drug therapy
CPT/HCPCS: 96372; 99283; A9270; J2919

== ENCOUNTER 2025-08-24 16:26 | Emergency (ER) | payer OTHER, SELFPAY ==
--- NOTE | ~2025-08-24 | XR_ITS ---
EXAMINATION: XR foot LT min 3V DATE: 08/24/2025 19:31 INDICATION: Lateral foot pain. TECHNIQUE: 3 views of the left foot were obtained. COMPARISON: None. FINDINGS: No acute bony lesions of the left foot especially on the lateral aspect. Alignment of the joints the mid foot are normal including Lisfranc joints. Mild soft tissue swelling on the dorsum of the foot. IMPRESSION: 1. No acute findings in the left foot. If symptoms are localized and persistent repeat x-ray or additional imaging with MRI may be considered. Reviewed, dictated and finalized at location T. [employer]
[2025-08-24 16:29] VITALS: BP 135/87; PULSE 102; RESP 16; TEMP 36.6; O2SAT 98
--- NOTE | 2025-08-24 19:18 | PC.NURSE ---
Report received from BEREKET Garcia. Assumed care of patient at this time.
[2025-08-24] MEDS: ACETAMINOPHEN 500 MG TABLET 1000 MG PO (19:23)
--- NOTE | 2025-08-24 19:25 | ED.LOWEXIN ---
HPI - Extremity Injury (Lower) General Chief Complaint: Extremity Injury, Lower Stated Complaint: left foot injury 3 days Time Seen by Provider: 08/24/25 19:00 History of Present Illness HPI Narrative: 50-year-old male presenting to the emergency department with left foot pain. 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 States that he is having lateral left-sided foot pain. Has had issues here before. States that hurts to walk and plantar flex. No neuropathy or weakness. No other traumatic injuries. He knows some minor swelling. Did not take any pain medications or anti-inflammatories. Has been wearing a sock on the foot. No other injuries. Has some chronic skin discoloration on the top of his left foot which is not new for him. Related Data Allergies Allergy/AdvReac Type Severity Reaction Status Date / Time ibuprofen Allergy Severe Anaphylaxis Verified 08/24/25 16:30 Review of Systems Review of Systems: As reviewed above in HPI All systems reviewed & are unremarkable except as noted in HPI and below PMFSH Past Medical History Medical History Dizziness UTI (urinary tract infection) Acute kidney injury Elevated serum creatinine Chronic sinusitis Hypertension Obesity (BMI 30-39.9) Encounter to establish care Dysphagia Family History Family History Father Diabetes mellitus Mother Hypertension Social History Social History Social History: Caffeine-tea Smoking status: Former smoker Tobacco type: cigarettes Smoking end date: 08/28/12 Alcohol intake: never Alcohol use details: socially when younger, in 20's Substance use: never Substance use type: does not use Lack of Transportation: No Lack of Food: Never True Current Housing: I Have Housing Concerned About Future Housing: No Difficulty Paying Gas/Electric Bills: No Difficulty Paying for Meds: No Currently Unemployed: No Education: Grade School Difficulty w/ Childcare or Family Care: No Living arrangements: with family Additional living arrangements comments: lives with his two children Gender identity (if verbalized by the patient): Male Spiritual care concerns: No Exam Narrative: GENERAL: [Well-appearing, well-nourished, and in no acute distress.] HEAD: [Normocephalic, atraumatic.] EYES: [PERRLA and EOMI.] ENT: Nares clear, no rhinorrhea or epistaxis. Mucous membranes moist. NECK: Supple. CHEST: No respiratory distress. Symmetric chest rise. HEART: 2+ dorsalis pedis pulse and posterior tibialis pulses. Warm extremities. ABDOMEN: [Soft, nondistended], [nontender], [No rigidity or guarding] EXTREMITIES: Normal range of motion. minimal swelling on the dorsum of the left foot. No ankle edema. Plantar flexion elicits pain. Dorsiflexion elicits no pain. No plantar surface ecchymoses. Lateral left foot abrasion near the midfoot. Some chronic appearing skin discoloration the top of the forefoot. No step-offs deformities. Pain reproducible to palpation to the left lateral foot. SKIN: Warm, dry, no rash. NEURO: [No focal deficits]. Alert and oriented [x3.] PSYCH: [Normal mood and affect.] Course Vital Signs Vital signs: Vital Signs Temperature 36.6 C 08/24/25 16:29 Pulse Rate 102 H 08/24/25 16:29 Respiratory Rate 16 08/24/25 16:29 Blood Pressure 135/87 08/24/25 16:29 Pulse Oximetry 98 08/24/25 16:29 Oxygen Delivery Room Air 08/24/25 16:29 Temperature 36.6 C 08/24/25 20:15 Pulse Rate 64 08/24/25 20:15 Respiratory Rate 18 08/24/25 20:15 Blood Pressure 114/82 08/24/25 20:15 Pulse Oximetry 97 08/24/25 20:15 Oxygen Delivery Room Air 08/24/25 16:29 MDM MDM Narrative Medical decision making narrative: 50-year-old male presenting to the emergency department with left foot pain. 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 States that he is having lateral left-sided foot pain. Has had issues here before. States that hurts to walk and plantar flex. No neuropathy or weakness. No other traumatic injuries. He knows some minor swelling. Did not take any pain medications or anti-inflammatories. Has been wearing a sock on the foot. No other injuries. Has some chronic skin discoloration on the top of his left foot which is not new for him. Normal range of motion. minimal swelling on the dorsum of the left foot. No ankle edema. Plantar flexion elicits pain. Dorsiflexion elicits no pain. No plantar surface ecchymoses. Lateral left foot abrasion near the midfoot. Some chronic appearing skin discoloration the top of the forefoot. No step-offs deformities. Pain reproducible to palpation to the left lateral foot. Vital signs are stable. He has a warm extremity with 2+ pulses. Likely ligamentous strain rather than occult fracture from wearing tight work boot. X-rays obtained and negative. Patient given Tylenol. Here he has crutches and was provided an Toney wrap for comfort as well as conservative therapy instructions and return precautions. Provided podiatry referral in case this is a recurrent issue. Differential Diagnosis Differential Diagnosis: ligamentous sprain, occult fracture, less likely dislocation Imaging Data Attestation: I personally reviewed and interpreted this imaging study as follows: My impression: Impressions Foot X-Ray 08/24/25 19:33 IMPRESSION: 1. No acute findings in the left foot. If symptoms are localized and persistent repeat x-ray or additional imaging with MRI may be considered. Radiologist's impression: ITS Impressions Foot X-Ray 08/24/25 19:33 IMPRESSION: 1. No acute findings in the left foot. If symptoms are localized and persistent repeat x-ray or additional imaging with MRI may be considered. Discharge Plan Discharge Clinical Impression: Left foot pain Patient Disposition: Home Condition: Stable Instructions: Antibiotic Form, Sprain (ED) Additional Instructions: Xrays normal, bones appear intact. Likely ligament sprain in your left foot. Apply Toney wrap for swelling and comfort. Use crutches for ambulation assistance as needed. Anti-inflammatory such as NSAIDs/ Tylenol as needed. Return with any emergent concerns. Patient Language: [place] Prescriptions: No Action lisinopril 30 mg tablet 30 mg PO DAILY Qty: 90 2RF Follow-up/Referrals: Oral Whitehead Jr., DPM [Physician, Podiatry] Rajendra Asher DO [Primary Care Provider, Internal Medicine] Stand Alone Forms: Work/School Release IP Time of Disposition: 19:46
[2025-08-24 20:15] VITALS: BP 114/82; PULSE 64; RESP 18; TEMP 36.6; O2SAT 97
== END 2025-08-24 20:17 | disposition home or self-care (01) ==
PROVIDERS: Emergency Provider Student in an Organized Health Care Education/Training Program; PCP Internal Medicine
DX: M79.672 Pain in left foot (principal); I10 Essential (primary) hypertension; F17.210 Nicotine dependence, cigarettes, uncomplicated
CPT/HCPCS: 73630; 99283; A9270